=== PATIENT | male | born 1950 | race Caucasian/White ===

== ENCOUNTER 2020-11-18 14:32 | Outpatient (CLI) | payer MEDICARE ==
[2020-11-18] MEDS ORDERED: TAMS-11 PO (15:13)
[2020-11-18] MEDS ORDERED: VITAMINS (15:13)
== END 2020-11-18 23:59 | disposition home or self-care (01) ==
LOC: STAR 14:32
PROVIDERS: ATTEND Urology
DX: Z01.818 Encounter for other preprocedural examination (principal); N40.1 Benign prostatic hyperplasia with lower urinary tract symptoms; Z20.828 Contact with and (suspected) exposure to other viral communicable diseases
CPT/HCPCS: 87635; 93005

== ENCOUNTER 2020-11-22 10:10 | Day surgery (SDC) | payer MEDICARE ==
[~2020-11-22] VITALS: Ht 167.6 cm; Wt 76.1 kg
[~2020-11-22 10:10] MED LIST: TAMS-11 PO; VITAMINS
[2020-11-22] MEDS ORDERED: LACTATED RINGERS 1,000 ML IV SCH (11:00)
[2020-11-22] MEDS ORDERED: CHLORHEXIDINE 15 ML UDC MM ONE (11:00)
[2020-11-22 11:01] VITALS: BP 120/79
[2020-11-22] MEDS ORDERED: CHLORHEXIDINE 15 ML UDC ONE (11:05)
[2020-11-22] MEDS ORDERED: MIDAZOLAM 1 MG/ML, 2ML ONE (11:43)
[2020-11-22] MEDS ORDERED: FENTANYL PF 100 MCG/2ML ONE (11:44)
[2020-11-22] MEDS ORDERED: ROCURONIUM 10MG/ML,5ML ONE (12:57)
[2020-11-22] MEDS ORDERED: GLYCOPYRROLATE 0.2MG/1ML, 5ML ONE (12:57)
[2020-11-22] MEDS ORDERED: CEFAZOLIN 1,000 MG ONE (12:57)
[2020-11-22] MEDS ORDERED: PROPOFOL 10 MG/ML, 20ML ONE (12:57)
[2020-11-22] MEDS ORDERED: LIDOCAINE-MPF 2% ,5ML ONE (12:57)
[2020-11-22] MEDS ORDERED: NEOSTIGMINE 1 MG/ML, 10ML ONE (12:57)
[2020-11-22] MEDS ORDERED: ONDANSETRON 2MG/ML, 2ML ONE (12:57)
[2020-11-22] MEDS ORDERED: OPIUM/BELLADONNA SUPP.RECT 16.2-60 MG ONE (13:19)
[2020-11-22] MEDS ORDERED: KETOROLAC 30 MG/1 ML IVPush PRN (15:00)
[2020-11-22] MEDS ORDERED: ONDANSETRON 2MG/ML, 2ML IVPush PRN (15:00)
[2020-11-22] MEDS ORDERED: FENTANYL PF 100 MCG/2ML IV PRN (15:00)
[2020-11-22] MEDS ORDERED: ACETAMINOPHEN 325 MG TABLET PO PRN (15:00)
[2020-11-22] MEDS ORDERED: OXYcodone 5 MG/5 ML ORAL.SOL UDC PO PRN (15:00)
[2020-11-22] MEDS ORDERED: MEPERIDINE/PF 25MG/0.5ML IVPush PRN (15:00)
[2020-11-22] MEDS ORDERED: PROMETHAZINE 25 MG/ML, 1ML IVPush PRN (15:00)
[2020-11-22] MEDS ORDERED: DIAZEPAM 5 MG/ML, 2ML IVPush PRN (15:00)
[2020-11-22] MEDS ORDERED: HYDROmorphone 1 MG/ML, 1ML INJ IVPush PRN (15:00)
[2020-11-22] MEDS ORDERED: DIPHENHYDRAMINE 50 MG/ML, 1ML IVPush PRN (15:00)
== END 2020-11-22 16:10 | disposition home or self-care (01) ==
LOC: OUT 10:10
PROVIDERS: ATTEND Urology
DX: N40.1 Benign prostatic hyperplasia with lower urinary tract symptoms (principal); Z98.890 Other specified postprocedural states
CPT/HCPCS: 52601; 88309; J2250; J3010; J7120; J0690; J2405; J2704; J2710